=== PATIENT | female | born 1955 | race Caucasian/White ===

== ENCOUNTER 2025-06-02 21:47 | Inpatient (IN) | payer OTHER ==
[~2025-06-02] VITALS: Ht 149.9 cm; Wt 81.0 kg
[~2025-06-02 21:47] MED LIST: ALBU18HF12 IH; ASPI-1444 PO; ATOR40TA71 PO; CEPH-558 PO; HYDR-4072 PO; IPRA4AER IH; LOSA-382 PO; METF-1211 PO; PRED-554 PO
[2025-06-02 23:01] LABS: CALCIUM, TOTAL 9.3 mg/dL (8.8-10.5); CREATININE 1.28 mg/dL (0.60-1.30); GLOMERULAR FILTR. RATE CALC 41 mL/min (>60); GLUCOSE,RANDOM 148 mg/dL (70-110); SODIUM SERUM 142 mmol/L (136-145); UREA NITROGEN, BLOOD 25 mg/dL (7-18)
[2025-06-02 23:07] LABS: CREATINE KINASE, TOTAL ONLY 64 U/L (26-192)
[2025-06-02 23:11] LABS: TROPONIN I-HIGH SENSITIVITY 40 ng/L (<51)
[2025-06-02] MEDS: SODIUM CHLORIDE 0.9% 1,000 ML IV ONE (23:15)
[2025-06-02 23:16] LABS: NUCLEATED RED BLOOD CELLS 0.1 % (0.0-0.0); RED BLOOD CELL COUNT(AUTO) 5.68 MIL/uL (4.00-5.20); WHITE BLOOD COUNT (AUTO) 11.3 K/uL (4.5-11.0)
[2025-06-02 23:17] LABS: PLATELET COUNT (AUTO) 226 K/uL (150-450); RED CELL DISTRIBUTION WIDTH 16.7 % (11.5-14.5)
[2025-06-02 23:24] LABS: BAND NEUTROPHILS % (MANUAL) 5 % (0-5); BASOPHILS % (MANUAL) 1 % (0-2); EOSINOPHILS % (MANUAL) 1 % (1-6); LYMPHOCYTES % (MANUAL) 25 % (22-44); MONOCYTES % (MANUAL) 8 % (2-9); SEGMENTED NEUTROPHILS % 60 % (40-70)
[2025-06-02] MEDS: SODIUM CHLORIDE 0.9% 1,350 ML IV ONE (23:32)
[2025-06-02] MEDS: CefTRIAXone 1 GM/DEXTROSE 50 ML IV ONE (23:32)
[2025-06-02 23:37] LABS: ASPARTATE AMINOTRANSFERASE 20 U/L (15-37); TOTAL PROTEIN, SERUM 6.6 g/dL (6.4-8.2)
[2025-06-03] VITALS (12 sets, daily range): BP systolic 103–139; BP diastolic 55–85; PULSE 26–99; RESP 16–31; TEMP 97.7–98.5; O2SAT 84–100
[2025-06-03] MEDS ORDERED: ONDANSETRON HCL 4 MG/2 ML VIAL IVP PRN (01:15)
[2025-06-03] MEDS: AZITHROMYCIN 500 MG/NS 250 ML IV ONE (01:37)
[2025-06-03 02:38] LABS: TROPONIN I-HIGH SENSITIVITY 38 ng/L (<51)
[2025-06-03] MEDS: IPRATROPIUM BROMIDE 0.5 MG/2.5 ML NEB SOLUTION NEB SCH (03:05)
[2025-06-03] MEDS: ALBUTEROL SULFATE 2.5 MG/0.5 ML NEB SOLUTION NEB SCH (03:05)
[2025-06-03] MEDS: FAMOTIDINE 20 MG/2 ML VIAL IVP ONE (04:05)
[2025-06-03] MEDS: FUROSEMIDE 20 MG/2 ML VIAL IVP ONE (04:05)
[2025-06-03] MEDS: HEPARIN SODIUM,PORCINE 5,000 UNITS/ML VIAL SQ SCH (08:00)
[2025-06-03] MEDS: DOCUSATE SODIUM 100 MG CAPSULE PO SCH (09:00)
[2025-06-03] MEDS ORDERED: DEXTROSE 50%-WATER 25 GM/50 ML SYRINGE IVP PRN (10:30)
[2025-06-03] MEDS ORDERED: ALBUTEROL SULFATE HFA 90 MCG/PUFF 8 GM INHALER IH PRN (10:30)
[2025-06-03] MEDS: ACETAMINOPHEN 325 MG TABLET PO PRN (11:26)
[2025-06-03] MEDS: INSULIN LISPRO 100 UNITS/ML SQ PRN ×2 (12:03→20:14)
[2025-06-03] MEDS: LIDOCAINE 5% TRANSDERMAL PATCH TD PRN (12:22)
[2025-06-03 14:56] LABS: GLUCOMETER DEV NAME(LOC) ICU.S7; GLUCOSE,POINT OF CARE 141 MG/DL (70-110)
[2025-06-03] MEDS: INSULIN LISPRO 100 UNITS/ML SQ ONE ×2 (16:57→19:21)
[2025-06-03 17:06] LABS: GLUCOMETER DEV NAME(LOC) ICU.S7; GLUCOSE,POINT OF CARE 449 MG/DL (70-110)
[2025-06-03 17:40] LABS: GLUCOMETER DEV NAME(LOC) ICU.S7; GLUCOSE,POINT OF CARE 464 MG/DL (70-110)
[2025-06-03 19:06] LABS: GLUCOMETER DEV NAME(LOC) ICUN.6; GLUCOSE,POINT OF CARE 427 MG/DL (70-110)
[2025-06-03] MEDS: ATORVASTATIN CALCIUM 40 MG TABLET PO SCH (20:12)
[2025-06-03] MEDS: INSULIN GLARGINE,HUM.REC.ANLOG 100 UNITS/ML SQ SCH (20:13)
[2025-06-03] MEDS ORDERED: INSULIN GLARGINE,HUM.REC.ANLOG 100 UNITS/ML SQ SCH ×2 (21:00)
[2025-06-03 23:06] LABS: GLUCOMETER DEV NAME(LOC) ICUN.6; GLUCOSE,POINT OF CARE 362 MG/DL (70-110)
[2025-06-04] VITALS (10 sets, daily range): BP systolic 113–139; BP diastolic 58–88; PULSE 79–100; RESP 16–18; TEMP 97.3–98.1; O2SAT 92–99
[2025-06-04] MEDS ORDERED: SODIUM CHLORIDE 0.9% 500 ML IV ONE ×2 (00:03→22:21)
[2025-06-04] MEDS: CefTRIAXone 1 GM/DEXTROSE 50 ML IV SCH (00:15)
[2025-06-04] MEDS: AZITHROMYCIN 500 MG/NS 250 ML IV SCH (01:49)
[2025-06-04 05:59] LABS: PLATELET COUNT (AUTO) 213 K/uL (150-450); RED BLOOD CELL COUNT(AUTO) 5.04 MIL/uL (4.00-5.20); RED CELL DISTRIBUTION WIDTH 16.1 % (11.5-14.5); WHITE BLOOD COUNT (AUTO) 14.2 K/uL (4.5-11.0)
[2025-06-04 06:56] LABS: CALCIUM, TOTAL 8.8 mg/dL (8.8-10.5); CREATININE 0.95 mg/dL (0.60-1.30); GLOMERULAR FILTR. RATE CALC 58.0 mL/min (>60); GLUCOSE,RANDOM 265.0 mg/dL (70-110); SODIUM SERUM 140.0 mmol/L (136-145); UREA NITROGEN, BLOOD 20.0 mg/dL (7-18)
[2025-06-04 08:05] LABS: GLUCOMETER DEV NAME(LOC) 5S.1D; GLUCOSE,POINT OF CARE 292 MG/DL (70-110)
[2025-06-04] MEDS: ASPIRIN 81 MG DR TABLET PO SCH (09:11)
[2025-06-04] MEDS: LOSARTAN POTASSIUM 50 MG TABLET PO SCH (09:11)
[2025-06-04] MEDS: ALBUTEROL SULFATE 2.5 MG/0.5 ML NEB SOLUTION NEB PRN (10:39)
[2025-06-04] MEDS: IPRATROPIUM BROMIDE 0.5 MG/2.5 ML NEB SOLUTION NEB PRN (10:39)
[2025-06-04] MEDS: MELATONIN 3 MG TABLET PO PRN (22:24)
[2025-06-05] VITALS (10 sets, daily range): BP systolic 138–164; BP diastolic 70–82; PULSE 75–90; RESP 18–20; TEMP 97.7–97.9; O2SAT 95–99
[2025-06-05] MEDS: DEXTROSE 50%-WATER 25 GM/50 ML SYRINGE IVP PRN (06:13)
[2025-06-05 06:56] LABS: GLUCOMETER DEV NAME(LOC) 6N.2C; GLUCOSE,POINT OF CARE 119 MG/DL (70-110)
[2025-06-05 06:56] LABS: GLUCOMETER DEV NAME(LOC) 6N.2C; GLUCOSE,POINT OF CARE 69 MG/DL (70-110)
[2025-06-05 06:56] LABS: GLUCOMETER DEV NAME(LOC) 6N.2C; GLUCOSE,POINT OF CARE 343 MG/DL (70-110)
[2025-06-05 06:56] LABS: GLUCOMETER DEV NAME(LOC) 6N.2C; GLUCOSE,POINT OF CARE 116 MG/DL (70-110)
[2025-06-05 11:56] LABS: GLUCOMETER DEV NAME(LOC) 6N.2C; GLUCOSE,POINT OF CARE 121 MG/DL (70-110)
[2025-06-05 11:56] LABS: GLUCOMETER DEV NAME(LOC) 6N.2C; GLUCOSE,POINT OF CARE 185 MG/DL (70-110)
[2025-06-05 12:16] LABS: GLUCOMETER DEV NAME(LOC) 5S.2D; GLUCOSE,POINT OF CARE 276 MG/DL (70-110)
[2025-06-05 12:16] LABS: GLUCOMETER DEV NAME(LOC) 5S.2D; GLUCOSE,POINT OF CARE 232 MG/DL (70-110)
[2025-06-05 12:16] LABS: GLUCOMETER DEV NAME(LOC) 5S.2D; GLUCOSE,POINT OF CARE 263 MG/DL (70-110)
[2025-06-05 18:11] LABS: GLUCOMETER DEV NAME(LOC) 6N.2C; GLUCOSE,POINT OF CARE 320 MG/DL (70-110)
[2025-06-05] MEDS: HYDROCODONE/ACETAMINOPHEN 5-325 MG TABLET PO PRN (21:47)
[2025-06-05 22:31] LABS: GLUCOMETER DEV NAME(LOC) 6N.2C; GLUCOSE,POINT OF CARE 383 MG/DL (70-110)
[2025-06-06] VITALS (7 sets, daily range): BP systolic 141–166; BP diastolic 71–89; PULSE 76–88; RESP 16–20; TEMP 98.2–98.4; O2SAT 90–99
[2025-06-06 06:06] LABS: GLUCOMETER DEV NAME(LOC) 6N.2C; GLUCOSE,POINT OF CARE 173 MG/DL (70-110)
[2025-06-06 11:36] LABS: GLUCOMETER DEV NAME(LOC) 6N.2C; GLUCOSE,POINT OF CARE 137 MG/DL (70-110)
[2025-06-06] MEDS ORDERED: HYDR-4072 PO ×2 (12:51→12:56)
[2025-06-06] MEDS ORDERED: IPRA0.2S49 NEB (12:51)
[2025-06-06] MEDS ORDERED: ALBU2.5V39 NEB (12:51)
[2025-06-06] MEDS ORDERED: MELA3TAB89 PO (12:55)
[2025-06-06] MEDS ORDERED: LIDO700A30 TD (12:55)
[2025-06-06] MEDS ORDERED: INSLAN SQ (12:55)
[2025-06-06] MEDS ORDERED: NALO4SPR NASAL (12:57)
[2025-06-06] MEDS ORDERED: AZIT-164 PO (12:59)
[2025-06-06] MEDS ORDERED: CEFD300C18 PO (12:59)
[2025-06-06] MEDS ORDERED: PRED-729 PO (13:04)
[2025-06-06 17:15] LABS: GLUCOMETER DEV NAME(LOC) 6N.2C; GLUCOSE,POINT OF CARE 323 MG/DL (70-110)
[2025-06-06 23:00] LABS: GLUCOMETER DEV NAME(LOC) 6N.2C; GLUCOSE,POINT OF CARE 234 MG/DL (70-110)
[2025-06-07] VITALS (7 sets, daily range): BP systolic 160–179; BP diastolic 70–96; PULSE 64–75; RESP 18–20; TEMP 97.7–98.1; O2SAT 95–100
[2025-06-07 06:26] LABS: GLUCOMETER DEV NAME(LOC) 6N.2C; GLUCOSE,POINT OF CARE 136 MG/DL (70-110)
[2025-06-07 10:11] LABS: GLUCOMETER DEV NAME(LOC) 6N.2C; GLUCOSE,POINT OF CARE 218 MG/DL (70-110)
[2025-06-07 11:09] LABS: PLATELET COUNT (AUTO) 225 K/uL (150-450); RED BLOOD CELL COUNT(AUTO) 5.14 MIL/uL (4.00-5.20); RED CELL DISTRIBUTION WIDTH 16.5 % (11.5-14.5); WHITE BLOOD COUNT (AUTO) 8.8 K/uL (4.5-11.0)
[2025-06-07 11:15] LABS: CALCIUM, TOTAL 8.7 mg/dL (8.8-10.5); CREATININE 0.83 mg/dL (0.60-1.30); GLOMERULAR FILTR. RATE CALC > 60 mL/min (>60); GLUCOSE,RANDOM 187 mg/dL (70-110); SODIUM SERUM 140 mmol/L (136-145); UREA NITROGEN, BLOOD 17 mg/dL (7-18)
[2025-06-07 11:50] LABS: GLUCOMETER DEV NAME(LOC) 6N.2C; GLUCOSE,POINT OF CARE 173 MG/DL (70-110)
[2025-06-07] MEDS ORDERED: LOSA-382 PO (14:40)
== END 2025-06-07 17:19 | disposition home or self-care (01) | DRG 871 ==
LOC: EMS 21:47 → EDH 06-03 01:01 → ICU 06-03 07:53 → 5S 06-03 20:46 → 4E 06-04 13:50
PROVIDERS: ADMIT Internal Medicine; ATTEND Internal Medicine
DX: A41.9 Sepsis, unspecified organism (principal); J15.69 Pneumonia due to other Gram-negative bacteria; J96.01 Acute respiratory failure with hypoxia; J44.1 Chronic obstructive pulmonary disease with (acute) exacerbation; I50.32 Chronic diastolic (congestive) heart failure; J44.0 Chronic obstructive pulmonary disease with (acute) lower respiratory infection; E11.9 Type 2 diabetes mellitus without complications; F17.200 Nicotine dependence, unspecified, uncomplicated; Z79.899 Other long term (current) drug therapy
CPT/HCPCS: 71045; 76705; 80048; 80076; 82550; 82962; 83735; 83880; 84145; 84484; 85025; 85379; 87040; 87081; 93005; 94640; 94760; 97116; 97163; 97530; 99285; G0378; J0456; J0696; J1644; J1815; J1938; J2919; J3490; J7030; J7040; 36415-L1; 36415-TC; J7613